=== PATIENT | female | born 1990 | race Caucasian/White ===

== ENCOUNTER 2018-03-15 08:57 | Emergency (ER) | payer OTHER ==
[2018-03-15 10:03] LABS: ADD MAN DIFF? NO
[2018-03-15 10:04] LABS: WHITE BLOOD COUNT 8.9 10^3/ul (4.8-10.8)
[2018-03-15 10:04] LABS: BASOPHIL # 0.1 10^3/ul (0.0-0.1); BASOPHILS % 0.7 % (0.0-2.0); EOSINOPHILS # 0.6 10^3/ul (0.0-0.5); EOSINOPHILS % 6.3 % (0.0-7.0); HEMATOCRIT 38.1 % (37.0-47.0); HEMOGLOBIN 12.9 g/dl (12.0-16.0); LYMPHOCYTES # 1.3 10^3/ul (0.8-2.9); LYMPHOCYTES % 14.4 % (15.0-51.0); MEAN CORPUSCULAR HEMOGLOBIN 30.6 pg (29.0-33.0); MEAN CORPUSCULAR HGB CONC 33.9 g/dl (32.0-37.0); MEAN CORPUSCULAR VOLUME 90.3 fl (82.0-101.0); MEAN PLATELET VOLUME 10.8 fl (7.4-10.4); MONOCYTE # 0.6 10^3/ul (0.3-0.9); MONOCYTES % 6.4 % (0.0-11.0); NEUTROPHIL # 6.4 10^3/ul (1.6-7.5); NEUTROPHILS % 71.8 % (39.0-77.0); PLATELET COUNT 261 10^3/UL (140-415); RED BLOOD COUNT 4.22 10^6/ul (4.20-5.40); RED CELL DISTRIBUTION WIDTH 12.7 % (11.5-14.5)
[2018-03-15 10:09] LABS: ADD UMIC YES; UR ASCORBIC ACID NEGATIVE (NEGATIVE); UR BACTERIA FEW /HPF (NONE SEEN); UR BILIRUBIN (Dip) NEGATIVE (NEGATIVE); UR BLOOD (Dip) NEGATIVE (NEGATIVE); UR CLARITY CLEAR (CLEAR); UR COLOR YELLOW (YELLOW); UR GLUCOSE (Dip) NEGATIVE (NEGATIVE); UR KETONES (Dip) 1+ mg/dL (NEGATIVE); UR LEUKOCYTE ESTERASE (Dip) 1+ Leu/ul (NEGATIVE); UR NITRITE (Dip) NEGATIVE (NEGATIVE); UR RBC 1 /HPF (0-5); UR SPECIFIC GRAVITY (Dip) 1.018 (1.003-1.030); UR TOTAL PROTEIN (Dip) NEGATIVE (NEGATIVE); UR UROBILINOGEN (Dip) NEGATIVE (NEGATIVE); UR WBC 4 /HPF (0-5)
== END 2018-03-15 12:39 | disposition home or self-care (01) ==
LOC: FTE 08:57
DX: O26.891 Other specified pregnancy related conditions, first trimester (principal); R10.2 Pelvic and perineal pain; Z3A.13 13 weeks gestation of pregnancy
CPT/HCPCS: 36415; 76801; 81001; 84702; 85025; 86900; 86901; 99284-25

== ENCOUNTER 2018-04-21 08:57 | Emergency (ER) | payer OTHER | END 2018-04-21 10:28 | disposition home or self-care (01) | LOC: FTE 08:57 | DX: O26.892 Other specified pregnancy related conditions, second trimester (principal); R10.2 Pelvic and perineal pain; Z3A.18 18 weeks gestation of pregnancy | CPT/HCPCS: 76805; 99284-25 ==

== ENCOUNTER 2018-07-13 18:39 | Outpatient (CLI) | payer OTHER | END 2018-07-13 19:53 | disposition home or self-care (01) | LOC: OBT 18:39 → L-D 18:40 → OBT 19:53 | DX: O41.03X0 Oligohydramnios, third trimester, not applicable or unspecified (principal); Z3A.30 30 weeks gestation of pregnancy | CPT/HCPCS: 76818 ==

== ENCOUNTER 2018-09-05 11:44 | Outpatient (CLI) | payer OTHER | END 2018-09-05 14:30 | disposition home or self-care (01) | LOC: OBT 11:44 → L-D 11:44 → OBT 14:30 | DX: O99.213 Obesity complicating pregnancy, third trimester (principal); E66.9 Obesity, unspecified; Z3A.38 38 weeks gestation of pregnancy | CPT/HCPCS: 76818 ==

== ENCOUNTER 2018-09-08 19:29 | Inpatient (IN) | payer OTHER ==
[2018-09-08] MEDS ORDERED: MISOPROSTOL 200 MCG TAB PR (20:00)
[2018-09-08] MEDS ORDERED: CEFAZOLIN 2 GM/50 ML (PMX) 50 ML IVPB (20:00)
[2018-09-08] MEDS ORDERED: CARBOPROST 250 MCG INJ IM (20:00)
[2018-09-08] MEDS ORDERED: OXYTOCIN 30 UNITS/LR 500 ML IV (20:00)
[2018-09-08] MEDS ORDERED: METHYLERGONOVINE 0.2 MG INJ IM (20:00)
[2018-09-08 20:33] LABS: ADD MAN DIFF? NO
[2018-09-08 20:38] LABS: BASOPHILS % 0.5 % (0.0-2.0); EOSINOPHILS # 0.3 10^3/ul (0.0-0.5); EOSINOPHILS % 2.9 % (0.0-7.0); HEMATOCRIT 35.5 % (37.0-47.0); HEMOGLOBIN 11.8 g/dl (12.0-16.0); LYMPHOCYTES # 1.4 10^3/ul (0.8-2.9); LYMPHOCYTES % 16.2 % (15.0-51.0); MEAN CORPUSCULAR HGB CONC 33.2 g/dl (32.0-37.0); MEAN CORPUSCULAR VOLUME 90.3 fl (82.0-101.0); MEAN PLATELET VOLUME 10.5 fl (7.4-10.4); MONOCYTE # 0.8 10^3/ul (0.3-0.9); MONOCYTES % 9.5 % (0.0-11.0); NEUTROPHIL # 5.9 10^3/ul (1.6-7.5); NEUTROPHILS % 69.4 % (39.0-77.0); PLATELET COUNT 249 10^3/UL (140-415); RED BLOOD COUNT 3.93 10^6/ul (4.20-5.40); RED CELL DISTRIBUTION WIDTH 12.9 % (11.5-14.5)
[2018-09-08 20:38] LABS: WHITE BLOOD COUNT 8.5 10^3/ul (4.8-10.8)
[2018-09-08 21:12] LABS: INR 0.91; PROTIME 12.4 Sec (11.9-14.9)
[2018-09-08 21:44] LABS: HEPATITIS B SURFACE ANTIGEN NEGATIVE (NEGATIVE)
[2018-09-09] MEDS: LACTATED RINGER'S 1,000 ML IV ×2 (05:50→18:27)
[2018-09-09] MEDS ORDERED: morphine SULFATE/PF (10 MG/10 ML) INJ (08:11)
[2018-09-09] MEDS ORDERED: MIDAZOLAM 1 MG/ML 2 ML INJ (08:51)
[2018-09-09] MEDS ORDERED: BUPIVACAINE 0.75%/DEXT (SPINAL) 2 ML INJ (08:51)
[2018-09-09] MEDS ORDERED: HYDROmorphONE 0.5 MG/0.5 ML SYG IV ×2 (09:30)
[2018-09-09] MEDS ORDERED: NALBUPHINE HCL (10 MG/1 ML) INJ IV (09:30)
[2018-09-09] MEDS ORDERED: DIPHENHYDRAMINE 50 MG INJ IV ×3 (09:30→15:30)
[2018-09-09] MEDS ORDERED: ZOLPIDEM 5 MG TAB PO ×2 (09:30→15:30)
[2018-09-09] MEDS ORDERED: NALOXONE (0.4 MG/ML) INJ IV (09:30)
[2018-09-09] MEDS ORDERED: METOCLOPRAMIDE 10 MG INJ IV (09:30)
[2018-09-09] MEDS ORDERED: ONDANSETRON 4 MG INJ IV ×3 (09:30→15:30)
[2018-09-09] MEDS ORDERED: MIDAZOLAM 1 MG/ML 2 ML INJ IV (09:30)
[2018-09-09] MEDS ORDERED: DIPHENHYDRAMINE 50 MG INJ (09:35)
[2018-09-09] MEDS: OXYTOCIN 30 UNITS/LR 500 ML IV ×2 (10:12→14:26)
[2018-09-09] MEDS: ONDANSETRON 4 MG INJ IV (11:32)
[2018-09-09] MEDS ORDERED: OXYTOCIN 30 UNITS/LR 500 ML IV (15:30)
[2018-09-09] MEDS ORDERED: MISOPROSTOL 200 MCG TAB PR (15:30)
[2018-09-09] MEDS ORDERED: CARBOPROST 250 MCG INJ IM (15:30)
[2018-09-09] MEDS ORDERED: WITCH HAZEL/GLYCERIN PAD PR (15:30)
[2018-09-09] MEDS ORDERED: BENZOCAINE 20% 56 ML SPRAY TOP (15:30)
[2018-09-09] MEDS ORDERED: ACETAMINOPHEN 325 MG TAB PO (15:30)
[2018-09-09] MEDS ORDERED: LANOLIN HPA 1 PKT TOP (15:30)
[2018-09-09] MEDS ORDERED: DIBUCAINE 1% 30 GM OINT TOP (15:30)
[2018-09-09] MEDS ORDERED: METHYLERGONOVINE 0.2 MG INJ IM (15:30)
[2018-09-09] MEDS ORDERED: OXYCODONE/ASPIRIN (4.88/325) TAB PO (15:30)
[2018-09-09 16:21] LABS: RAPID PLASMA REAGIN NONREACTIVE (NR)
[2018-09-09] MEDS: DEXTROSE 5%-LR 1,000 ML IV (19:46)
[2018-09-09] MEDS: LACTATED RINGER'S 1,000 ML IV* (19:47)
[2018-09-10] MEDS: LACTATED RINGER'S 1,000 ML IV* (02:11)
[2018-09-10] MEDS: KETOROLAC 30 MG INJ IV (04:59)
[2018-09-10 06:38] LABS: ADD MAN DIFF? NO
[2018-09-10 06:41] LABS: BASOPHILS % 0.3 % (0.0-2.0); EOSINOPHILS # 0.1 10^3/ul (0.0-0.5); EOSINOPHILS % 1.2 % (0.0-7.0); HEMATOCRIT 31.6 % (37.0-47.0); HEMOGLOBIN 10.5 g/dl (12.0-16.0); LYMPHOCYTES # 1.2 10^3/ul (0.8-2.9); LYMPHOCYTES % 10.3 % (15.0-51.0); MEAN CORPUSCULAR HEMOGLOBIN 30.2 pg (29.0-33.0); MEAN CORPUSCULAR HGB CONC 33.2 g/dl (32.0-37.0); MEAN CORPUSCULAR VOLUME 90.8 fl (82.0-101.0); MEAN PLATELET VOLUME 10.5 fl (7.4-10.4); MONOCYTE # 1.1 10^3/ul (0.3-0.9); MONOCYTES % 9.7 % (0.0-11.0); NEUTROPHIL # 8.9 10^3/ul (1.6-7.5); NEUTROPHILS % 77.9 % (39.0-77.0); PLATELET COUNT 212 10^3/UL (140-415); RED BLOOD COUNT 3.48 10^6/ul (4.20-5.40); RED CELL DISTRIBUTION WIDTH 13.2 % (11.5-14.5)
[2018-09-10 06:41] LABS: WHITE BLOOD COUNT 11.4 10^3/ul (4.8-10.8)
[2018-09-10] MEDS ORDERED: PHENYLephrine (100 MCG/ML) 10ML SYG (07:00)
[2018-09-10] MEDS ORDERED: EPHEDrine SULFATE 50 MG/5 ML SYG (07:00)
[2018-09-10] MEDS ORDERED: METOCLOPRAMIDE 10 MG INJ (07:00)
[2018-09-10] MEDS: IBUPROFEN 600 MG TAB PO ×3 (12:05→23:47)
[2018-09-10] MEDS: INFLUENZA VIRUS VACCINE 0.5 ML (DISPENSING) IM* (12:08)
[2018-09-10] MEDS: DIPHTH/TET/ACEL PERTUSS (ADULT) 0.5 ML VIAL IM* (16:26)
[2018-09-10] MEDS: SENNA/DOCUSATE NA (8.6MG/50MG) TAB PO (20:18)
[2018-09-11] MEDS: IBUPROFEN 600 MG TAB PO ×3 (06:08→18:09)
[2018-09-11] MEDS: MEASLES,MUMPS,RUBELLA VACCINE INJ SC* (09:00)
[2018-09-11] MEDS: MAGNESIUM HYDROXIDE 30ML CUP PO ×2 (12:14→21:43)
[2018-09-11] MEDS: SENNA/DOCUSATE NA (8.6MG/50MG) TAB PO (21:46)
[2018-09-12] MEDS: IBUPROFEN 600 MG TAB PO ×3 (00:12→11:52)
[2018-09-12] MEDS: SENNA/DOCUSATE NA (8.6MG/50MG) TAB PO (09:20)
[2018-09-12] MEDS: MAGNESIUM HYDROXIDE 30ML CUP PO (09:20)
[2018-09-12] MEDS: MEASLES,MUMPS,RUBELLA VACCINE INJ SC* (11:46)
== END 2018-09-12 15:50 | disposition home or self-care (01) | DRG 788 ==
LOC: L-D 09-09 02:42 → PP1 09-09 14:55
PROVIDERS: Obstetrics & Gynecology
PROC: 10D00Z1 Extraction of Products of Conception, Low, Open Approach (ICD-10-PCS; principal; 2018-09-08)
DX: O34.211 Maternal care for low transverse scar from previous cesarean delivery (principal); O32.8XX0 Maternal care for other malpresentation of fetus, not applicable or unspecified; O99.214 Obesity complicating childbirth; E66.01 Morbid (severe) obesity due to excess calories; Z37.0 Single live birth; Z3A.39 39 weeks gestation of pregnancy
CPT/HCPCS: 85025; 85610; 85730; 86592; 86850; 86900; 86901; 87340; 90686; 99464